=== PATIENT | female | born 1985 | race Caucasian/White ===

== ENCOUNTER 2017-07-02 18:39 | Emergency (ER) | payer OTHER ==
[~2017-07-02] VITALS: Ht 157.5 cm; Wt 83.0 kg
[~2017-07-02 18:39] MED LIST: IBUP-1542 PO; PRENAT PO
[2017-07-02 19:05] VITALS: Ht 157.5 cm; Wt 83.0 kg
[2017-07-02 20:37] LABS: BASOPHIL # 0.1 10^3/ul (0.0-0.1); BASOPHILS % 0.4 % (0.0-2.0); EOSINOPHILS # 0.1 10^3/ul (0.0-0.5); EOSINOPHILS % 1.1 % (0.0-7.0); HEMATOCRIT 38.7 % (37.0-47.0); HEMOGLOBIN 13.4 g/dl (12.0-16.0); LYMPHOCYTES # 2.7 10^3/ul (0.8-2.9); LYMPHOCYTES % 23.4 % (15.0-51.0); MEAN CORPUSCULAR HEMOGLOBIN 31.8 pg (29.0-33.0); MEAN CORPUSCULAR HGB CONC 34.6 g/dl (32.0-37.0); MEAN CORPUSCULAR VOLUME 91.9 fl (82.0-101.0); MEAN PLATELET VOLUME 11.1 fl (7.4-10.4); MONOCYTE # 0.8 10^3/ul (0.3-0.9); MONOCYTES % 6.8 % (0.0-11.0); NEUTROPHIL # 7.9 10^3/ul (1.6-7.5); NEUTROPHILS % 67.8 % (39.0-77.0); PLATELET COUNT 217 10^3/UL (140-415); RED BLOOD COUNT 4.21 10^6/ul (4.20-5.40); RED CELL DISTRIBUTION WIDTH 12.6 % (11.5-14.5); WHITE BLOOD COUNT 11.7 10^3/ul (4.8-10.8)
[2017-07-02] MEDS ORDERED: ONDANSETRON (ODT) 4 MG TAB ODT STA (20:42)
[2017-07-02 20:51] LABS: ADD UMIC YES; UR ASCORBIC ACID NEGATIVE (NEGATIVE); UR BACTERIA FEW /HPF (NONE SEEN); UR BILIRUBIN (Dip) NEGATIVE (NEGATIVE); UR BLOOD (Dip) NEGATIVE (NEGATIVE); UR CLARITY SLIGHTLY CLOUDY (CLEAR); UR COLOR YELLOW (YELLOW); UR GLUCOSE (Dip) NEGATIVE (NEGATIVE); UR KETONES (Dip) NEGATIVE (NEGATIVE); UR LEUKOCYTE ESTERASE (Dip) 2+ Leu/ul (NEGATIVE); UR MUCUS FEW /HPF (NONE SEEN); UR NITRITE (Dip) NEGATIVE (NEGATIVE); UR RBC 2 /HPF (0-5); UR SQUAMOUS EPITHELIAL CELL FEW /HPF (FEW); UR TOTAL PROTEIN (Dip) NEGATIVE (NEGATIVE); UR UROBILINOGEN (Dip) 1+ mg/dL (NEGATIVE)
--- NOTE | 2017-07-02 22:16 | RADRPT ---
PROCEDURE: Obstetrical ultrasound. CLINICAL INDICATION: Pelvic pain. TECHNIQUE: Multiple sonographic images of the pelvis were obtained with transabdominal technique. Images were obtained with oliveira scale and color Doppler. COMPARISON: No prior studies are available for comparison. FINDINGS: There are two intrauterine gestational sac with poles and yolk sacs identified. No subchorion ic collection is identified. The fetus A crown-rump length averages 1.05 cm, compatible with 7 weeks and 1 day. The mean sac di ameter averages 2.09 cm, compatible with 7 weeks and 0 days. heart tones of 182 beats per dereje te are identified. The fetus B crown-rump length averages 1.19 cm, compatible with 7 weeks and 3 days. The mean sac d iameter averages 2.49 cm, compatible with 7 weeks and 4 days. heart tones of 157 beats per min elem are identified. There is no pelvic free fluid. The right ovary measures 3.6 x 2.5 x 3.0 cm and the left ovary measu res 4.4 x 3.4 x 2.7 cm. There is normal flow to both ovaries. There is no suspicious adnexal mass identified. IMPRESSION: Twin living intrauterine gestations. Fetus A measures 7 weeks 1 day and fetus B measures 7 weeks 4 days. .Cody Kilgore MD, Date Time Electronically viewed and signed by .Cody Kilgore MD, MD on 07/02/2017 22:16 .T/
[2017-07-02] MEDS ORDERED: CEPH-443 PO (22:32)
--- NOTE | 2017-07-02 22:59 | ERD ---
ER Documentation Chief Complaint Date/Time DATE: 07/02/17 TIME: 22:58 Chief Complaint 8 weeks , pelvic pain ROS All systems reviewed and are negative except as per history of present illness. Medications Home Meds Active Scripts Cephalexin* (Keflex*) 500 Mg Capsule, 500 MG PO TID for 7 Days, CAP Prov:LEEANNA THAKKAR PA-C 07/02/17 Ibuprofen* (Motrin*) 600 Mg Tab, 600 MG PO Q6, #30 TAB Prov:DARREL JOSE PA-C 04/21/16 Reported Medications Multivit/Min/Fol Ac/Iron/Pren* ( S*) 1 Tab Tab, 1 TAB PO DAILY, TAB 03/09/15 Allergies Allergies: Coded Allergies: No Known Drug Allergy (Verified Allergy, Mild, 03/08/15) PMhx/Soc History of Surgery: Yes (c section) Anesthesia Reaction: No Hx Neurological Disorder: No Hx Respiratory Disorders: Yes (BRONCHITIS) Hx Cardiac Disorders: No Hx Psychiatric Problems: No Hx Miscellaneous Medical Probl: Yes (none) Hx Alcohol Use: No Hx Substance Use: No Hx Tobacco Use: No Smoking Status: Never smoker Physical Exam Vitals Vital Signs Date Time Temp Pulse Resp B/P Pulse Ox O2 Delivery O2 Flow Rate FiO2 07/02/17 19:05 97.8 92 20 124/77 100 Physical Exam Const: [] Head: Atraumatic Eyes: Normal Conjunctiva ENT: Normal External Ears, Nose and Mouth. Neck: Full range of motion..~ No meningismus. Resp: Clear to auscultation bilaterally Cardio: Regular rate and rhythm, no murmurs Abd: Soft, non tender, non distended. Normal bowel sounds Skin: No petechiae or rashes Back: No midline or flank tenderness Ext: No cyanosis, or edema Neur: Awake and alert Psych: Normal Mood and Affect Result Diagram: 07/02/172014 Results 24 hrs Laboratory Tests Test 07/02/17 20:10 07/02/17 20:15 Urine Color YELLOW Urine Clarity SLIGHTLY CLOUDY Urine pH 6.0 Urine Specific Marion 1.030 Urine Ketones NEGATIVEmg/dL Urine Nitrite NEGATIVEmg/dL Urine Bilirubin NEGATIVEmg/dL Urine Urobilinogen 1+mg/dL Urine Leukocyte Esterase 2+Anthony/ul Urine Microscopic RBC 2/HPF Urine Microscopic WBC 6/HPF Urine Squamous Epithelial Cells FEW/HPF Urine Bacteria FEW/HPF Urine Mucus FEW/HPF Urine Hemoglobin NEGATIVEmg/dL Urine Glucose NEGATIVEmg/dL Urine Total Protein NEGATIVEmg/dl White Blood Count 11.710^3/ul Red Blood Count 4.2110^6/ul Hemoglobin 13.4g/dl Hematocrit 38.7% Mean Corpuscular Volume 91.9fl Mean Corpuscular Hemoglobin 31.8pg Mean Corpuscular Hemoglobin Concent 34.6g/dl Red Cell Distribution Width 12.6% Platelet Count 06900^3/UL Mean Platelet Volume 11.1fl Neutrophils % 67.8% Lymphocytes % 23.4% Monocytes % 6.8% Eosinophils % 1.1% Basophils % 0.4% Nucleated Red Blood Cells % 0.0/100WBC Neutrophils # 7.910^3/ul Lymphocytes # 2.710^3/ul Monocytes # 0.810^3/ul Eosinophils # 0.110^3/ul Basophils # 0.110^3/ul Nucleated Red Blood Cells # 0.010^3/ul Beta HCG, Quantitative 805915.0mIU/ml Current Medications Medications (Trade) Dose Ordered Sig/Franky Route PRN Reason Start Time Stop Time Status Last Admin Dose Admin Ondansetron HCl (Zofran Odt) 4 mg ONCE STAT ODT 07/02/17 20:42 07/02/17 20:43 DC 07/02/17 20:49 DIAGNOSTIC IMAGING REPORT Patient: SOURAV HEDRICK : 1985 Age: 31 Sex: F MR #: [id number] DOS: 07/02/171958 Ordering MD: LEEANNA THAKKAR PA-C Location: E Room/Bed: PROCEDURE: Obstetrical ultrasound. CLINICAL INDICATION: Pelvic pain. TECHNIQUE: Multiple sonographic images of the pelvis were obtained with transabdominal technique. Images were obtained with oliveira scale and color Doppler. COMPARISON: No prior studies are available for comparison. FINDINGS: There are two intrauterine gestational sac with poles and yolk sacs identified. No subchorionic collection is identified. The fetus A crown-rump length averages 1.05 cm, compatible with 7 weeks and 1 day. The mean sac diameter averages 2.09 cm, compatible with 7 weeks and 0 days. heart tones of 182 beats per minute are identified. The fetus B crown-rump length averages 1.19 cm, compatible with 7 weeks and 3 days. The mean sac diameter averages 2.49 cm, compatible with 7 weeks and 4 days. heart tones of 157 beats per minute are identified. There is no pelvic free fluid. The right ovary measures 3.6 x 2.5 x 3.0 cm and the left ovary measures 4.4 x 3.4 x 2.7 cm. There is normal flow to both ovaries. There is no suspicious adnexal mass identified. IMPRESSION: Twin living intrauterine gestations. Fetus A measures 7 weeks 1 day and fetus B measures 7 weeks 4 days. .Cody Kilgore MD, Date Time Electronically viewed and signed by .Cody Kilgore MD, MD on 07/02/2017 22:16 .T/ CC: LEEANNA THAKKAR PA-C Procedures/MDM 31-year-old female presents with 2 intrauterine pregnancies in her life, twin gestation, and urinary tract infection. They are both approximately 7 weeks, with positive heart tones. She will be given antibiotics for urinary tract infection as well. Otherwise workup is negative, and she is stable for discharge. She was asked to follow with her OB in early next week. Departure Diagnosis: Primary Impression: Twin gestation in first trimester Additional Impression: UTI (urinary tract infection) Condition: Good Patient Instructions: Understanding Urinary Tract Infections (UTIs), : Your First Trimester Changes, Pelvic Pain, Unknown Cause Additional Instructions: Patient was advised to follow-up with their OB in 3-4 days for a recheck examination. If they were to develop any worsening symptoms sooner, including heavy vaginal bleeding or pelvic pain, they are to return to the ER for further evaluation. LEEANNA THAKKAR PA-C Jul 02, 2017 22:59
[2017-07-02 23:07] VITALS: BP 120/71; PULSE 78; RESP 20; TEMP 97.8
== END 2017-07-02 23:09 | disposition home or self-care (01) ==
LOC: FTE 18:39
DX: O23.41 Unspecified infection of urinary tract in pregnancy, first trimester (principal); R10.2 Pelvic and perineal pain; Z3A.01 Less than 8 weeks gestation of pregnancy
CPT/HCPCS: 36415; 76801; 81001; 84702; 85025; 86900; 86901; Z7502; Z7610

== ENCOUNTER 2017-11-16 11:47 | Inpatient (IN) | payer OTHER ==
[~2017-11-16] VITALS: Ht 160 cm; Wt 86.7 kg
[~2017-11-16 11:47] MED LIST changes: +CEPH-443 PO
[2017-11-16 12:08] VITALS: BP 108/69; PULSE 114; RESP 18; Ht 160 cm; Wt 86.7 kg
[2017-11-16] MEDS ORDERED: LACTATED RINGER'S 1,000 ML IV ONE (12:30)
[2017-11-16] MEDS ORDERED: BETAMET NA PHOS/AC(6 MG/ML) 5ML INJ IM SCH (13:00)
[2017-11-16] MEDS ORDERED: ONDANSETRON 4 MG INJ IV PRN ×2 (13:00→22:00)
[2017-11-16] MEDS ORDERED: MAGNESIUM SULFATE 4 GM/100 ML 100 ML IV ONE (13:00)
[2017-11-16 13:01] LABS: ADD UMIC YES; UR ASCORBIC ACID NEGATIVE (NEGATIVE); UR BACTERIA FEW /HPF (NONE SEEN); UR BILIRUBIN (Dip) NEGATIVE (NEGATIVE); UR BLOOD (Dip) NEGATIVE (NEGATIVE); UR CLARITY SLIGHTLY CLOUDY (CLEAR); UR COLOR YELLOW (YELLOW); UR GLUCOSE (Dip) NEGATIVE (NEGATIVE); UR KETONES (Dip) 1+ mg/dL (NEGATIVE); UR LEUKOCYTE ESTERASE (Dip) TRACE Leu/ul (NEGATIVE); UR MUCUS FEW /HPF (NONE SEEN); UR NITRITE (Dip) NEGATIVE (NEGATIVE); UR RBC 1 /HPF (0-5); UR SPECIFIC GRAVITY (Dip) 1.012 (1.003-1.030); UR SQUAMOUS EPITHELIAL CELL MODERATE /HPF (FEW); UR TOTAL PROTEIN (Dip) NEGATIVE (NEGATIVE); UR UROBILINOGEN (Dip) 2+ mg/dL (NEGATIVE)
[2017-11-16] MEDS: LACTATED RINGER'S 1,000 ML IV SCH ×2 (13:46→17:11)
--- NOTE | 2017-11-16 13:47 | HP ---
Date/Time of Note Date/Time of Note DATE: 11/16/17 TIME: 13:46 OB - History Hx of Present Free Text/Dictation 27+wks Twin s/p cercalage with CTxs : 2 Para: 1 Care: Good Care Obstetrical Complications: None Medical Complications: None Past Family/Social History * Past Medical, Surgical, Family and Obstetric Histories reviewed from chart. OB Admission Exam Vital Signs Vital Signs Vital Signs Date Time Temp Pulse Resp B/P Pulse Ox O2 Delivery O2 Flow Rate FiO2 11/16/17 12:08 98.8 114 18 108/69 96 Room Air Physical Exam Abdomen: WNL Extremities: Normal Cervical Dilatation: None Effacement: 0% Membranes: Intact Heart Rate: 140's Accelerations: Accelerations Present Decelerations: No Decelerations Varibility: Moderate Contractions on Admission: < 5 Minutes Apart OB Assessment/Plan Reason for admission: observation Plan: Expectant Management Other plan: Mg Steroids Ultrasound Prenatalogy consult Neonatology consult CHRISTOPHER TREJO M.D. Nov 16, 2017 13:47
[2017-11-16] MEDS: MAGNESIUM SULFATE 20 GM/500 ML 500 ML IV SCH ×2 (13:52→22:49)
--- NOTE | 2017-11-16 14:01 | RADRPT ---
PROCEDURE: US OB. CLINICAL INDICATION: labor. Planes TECHNIQUE: Multiple sonographic images of the pelvis were obtained. The images were reviewed on a PACS workstation. COMPARISON: 07/05/2017 FINDINGS: There is a twin live intrauterine . Baby A: cardiac activity is identified at a rate of 154 beats per minute. presentation is cephalic. Placenta is posterior grade 1 Biophysical profile score is as follows: Breathing 2 Movements 2 Tone 2 Fluid volume 2 Single largest pocket of amniotic fluid is 5.5 cm Total biophysical profile score = 8/8 Baby B: cardiac activity is identified at a rate of 135 beats per minute. position is transverse to the maternal left. Placenta is anterior grade 1. Biophysical profile score is as follows: Breathing 2 Movements 2 Tone 2 Fluid volume 2 Single largest pocket of amniotic fluid is 4.3 cm Total biophysical profile score = 8/8 IMPRESSION: 1. Twin live intrauterine 2. Baby A: Biophysical profile score = 8/8 3. Baby B: Biophysical profile score = 8/8 RPTAT: .Ranjeet Mckeon MD, Date Time Electronically viewed and signed by .Ranjeet Mckeon MD, on 11/16/2017 14:01 .W/
--- NOTE | 2017-11-16 14:29 | RADRPT ---
PROCEDURE: US OB. CLINICAL INDICATION: labor. Twin . TECHNIQUE: Multiple transabdominal sonographic images of the pelvis were obtained. COMPARISON: 09/07/2017. FINDINGS: A twin intrauterine is identified. Marked funneling of the internal cervical os extending to the level of the external cervical os is observed. The dilated endocervical canal measures approx imately 3.7 cm in greatest dimension, previously 1.7 cm in greatest dimension. Anterior and posterio r placentas are observed. Twin A: Measurements were made in order to determine age. The results are as follows: BPD = * HC = * AC = 22.62 cm, 27-week 0 days FL = 4.79 cm, 26 weeks 0 days * unable to obtain measurements due to low lie. SUE: 02/18/2018 by ultrasound. SUE: 02/14/2018 by LMP. EFW: 990.65 g, 2 pounds 3 ounces, 26.5% heart motion: 148 beats per minute Twin B: Measurements were made in order to determine age. The results are as follows: BPD = 6.59 cm, 26 weeks 4 days HC = 24.53 cm, 26 weeks 4 days AC = 22.97 cm, 27 weeks 2 days FL = 4.84 cm, 26 weeks 2 days SUE: 02/17/2018 by ultrasound. SUE: 02/14/2018 by LMP. EFW: 989.53 g, 2 pounds 3 ounces, 26.2%. heart motion: 142 beats per minute IMPRESSION: Twin intrauterine measuring approximately 26 weeks 4 days using current ultrasound measure ments with an estimated date of delivery of 02/18/2018. Marked funneling of the internal cervical os extending to the level of the external cervical os. The dilated endocervical canal measures 3.7 cm in greatest dimension, previously 1.7 cm. RPTAT: HLST .Iris Williamson MD, Date Time Electronically viewed and signed by .Iris Williamson MD, MD on 11/16/2017 14:29 .T/
[2017-11-16 15:42] LABS: BASOPHILS % 0.3 % (0.0-2.0); EOSINOPHILS # 0.1 10^3/ul (0.0-0.5); EOSINOPHILS % 0.5 % (0.0-7.0); HEMATOCRIT 29.5 % (37.0-47.0); LYMPHOCYTES # 1.3 10^3/ul (0.8-2.9); LYMPHOCYTES % 10.8 % (15.0-51.0); MEAN CORPUSCULAR HEMOGLOBIN 30.7 pg (29.0-33.0); MEAN CORPUSCULAR HGB CONC 33.9 g/dl (32.0-37.0); MEAN CORPUSCULAR VOLUME 90.5 fl (82.0-101.0); MEAN PLATELET VOLUME 11.1 fl (7.4-10.4); MONOCYTE # 1.3 10^3/ul (0.3-0.9); MONOCYTES % 11.2 % (0.0-11.0); NEUTROPHIL # 8.8 10^3/ul (1.6-7.5); NEUTROPHILS % 75.7 % (39.0-77.0); PLATELET COUNT 227 10^3/UL (140-415); RED BLOOD COUNT 3.26 10^6/ul (4.20-5.40); RED CELL DISTRIBUTION WIDTH 13.1 % (11.5-14.5); WHITE BLOOD COUNT 11.6 10^3/ul (4.8-10.8)
[2017-11-16 15:45] LABS: INR 0.96; PROTIME 12.9 Sec (11.9-14.9)
[2017-11-16 15:46] LABS: PARTIAL THROMBOPLASTIN TIME 30.3 Sec (25.0-35.0)
[2017-11-16 15:48] LABS: ALBUMIN 3.6 g/dl (3.3-4.9); ALBUMIN/GLOBULIN RATIO 0.87; BILIRUBIN,INDIRECT 0.4 mg/dl (0-1.1); BILIRUBIN,TOTAL 0.4 mg/dl (0.2-1.3); CALCIUM 9.4 mg/dl (8.4-10.2); CREATININE 0.5 mg/dl (0.44-1.00); POTASSIUM 3.7 mmol/L (3.5-5.1); TOTAL PROTEIN 7.7 g/dl (6.1-8.1)
[2017-11-16 16:16] LABS: BARBITURATES Negative (NEGATIVE); BENZODIAZEPINES Negative (NEGATIVE); CANNABINOIDS Negative (NEGATIVE); COCAINE Negative (NEGATIVE); OPIATES Negative (NEGATIVE)
--- NOTE | 2017-11-16 19:22 | CONS ---
DATE OF ADMISSION: 11/16/2017 DATE OF CONSULTATION: TYPE OF CONSULTATION: Neonatology . REQUESTING PHYSICIAN: Dr. Hardy HISTORY OF PRESENT ILLNESS: This mother is a 32-year-old 6, para 5, SAB 2, two term, 1 rebecca ature delivery. Mother has dichorionic diamniotic twins followed through [facility]. Mother madan mora today with labor. She is on tocolysis and is receiving steroids. I spoke to the parents in Thai regarding the risks associated with premature delivery including b ut not limited to the followin. Respiratory. I discussed the risk of respiratory distress syndrome and the use of surfactants a nd ventilatory support and oxygen supplementation. I also spoke about the risk of chronic lung dise ase should the babies require significant ventilatory support. We also discussed the risks of apnea of prematurity, the use of caffeine, nasal cannula oxygen supplementation. 2. Cardiac. I spoke about the risks of hypotension, including the use of medications to support bl ood pressure. Discussed the risk of patent ductus arteriosus and possible treatment with Indomethac in or surgical closure as indicated. 3. I spoke about the risks of infection, the use of antibiotics. 4. I spoke about the risks of anemia, the use of transfusions, physiologic jaundice and the use of phototherapy. 5. I spoke about the risks of intraventricular hemorrhage including its grading system. I also spo ke about the long-term risks of neurodevelopmental problems including but not limited to cerebral pa lsy, mental retardation, and school learning difficulties. 6. I spoke about the length of stay being approximately until due date, which at this time would be to 13 weeks, plus or minus 2 weeks. There is a minimal risk of mortality at this particular gestat ional age, especially if we can get at least a couple more days after the steroids are delivered. 7. I also discussed the risks of necrotizing enterocolitis and feeding difficulties. Thank you for this consult. We will be available for attendance at delivery as necessary. Dictated By: ATIF AVILEZ/SEBASTIAN Conf#: [id number] DID#: [id number] CC: CHRISTOPHER HARDY MD;*EndCC*
[2017-11-16] MEDS ORDERED: LACTATED RINGER'S 1,000 ML IV SCH (19:39)
--- NOTE | 2017-11-16 19:56 | QN ---
Documentation Comment Patient continues to have strong contractions despite being on IV magnesium sulfate. Cervix 8 cm dilated. Case discussed with Dr Peguero ([facility]) who recommends to deliver the patient at this time by repeat . Risks, benefits and alternatives were explained to the patient who stated she understood and gave informed consent for repeat . JAVY DALLAS MD Nov 16, 2017 19:56
[2017-11-16] MEDS ORDERED: METHYLERGONOVINE 0.2 MG INJ IM PRN (20:00)
[2017-11-16] MEDS ORDERED: CEFAZOLIN 2 GM/50 ML (PMX) 50 ML IV SCH (20:00)
[2017-11-16] MEDS ORDERED: OXYTOCIN 30 UNITS/LR 500 ML IV PRN (20:00)
[2017-11-16] MEDS ORDERED: CARBOPROST 250 MCG INJ IM PRN (20:00)
[2017-11-16] MEDS ORDERED: MISOPROSTOL 200 MCG TAB PR PRN (20:00)
[2017-11-16] MEDS ORDERED: morphine SULFATE/PF (10 MG/10 ML) INJ ONE (20:04)
[2017-11-16] MEDS ORDERED: OXYTOCIN 30 UNITS/LR 500 ML IV ONE (20:04)
[2017-11-16] MEDS ORDERED: ONDANSETRON 4 MG INJ ONE (20:04)
[2017-11-16] MEDS ORDERED: EPHEDrine SULFATE 50 MG/5 ML SYG ONE (20:04)
[2017-11-16] MEDS ORDERED: METOCLOPRAMIDE 10 MG INJ ONE (20:05)
[2017-11-16] MEDS ORDERED: OXYTOCIN 10 UNIT INJ ONE ×2 (20:05→20:28)
--- NOTE | 2017-11-16 21:46 | OPPN ---
Date/Time of Note Date/Time of Note DATE: 11/16/17 TIME: 21:40 Operative Report Planned Procedure Procedure date Nov 16, 2017 Procedure(s) Repeat c/s, BTL, removal of cerclage Performed by Javy Dallas MD Warp Starter none Pre-procedure diagnosis 27 weeks, twins, labor, previous c/s, cerclage insitu Anesthesia Type: spinal Post-Procedure Post-procedure diagnosis Same Findings Live Baby [], Apgars [] and [], weight [], position [], [] presentation []cord. Estimated Blood Loss: 500 - 600 mls (500 ml) Specimen(s) placenta, right and left Fallopian tubes Grafts/Implant(s) none Complication(s) none JAVY DALLAS MD Nov 16, 2017 21:46
[2017-11-16] MEDS ORDERED: DIPHENHYDRAMINE 50 MG INJ IV PRN (22:00)
[2017-11-16] MEDS ORDERED: morphine 4 MG/ML VIAL IV PRN (22:00)
[2017-11-16] MEDS ORDERED: NALOXONE (0.4 MG/ML) INJ IV PRN (22:00)
[2017-11-16] MEDS ORDERED: morphine SULFATE/PF (10 MG/10 ML) INJ SPINAL ONE (22:00)
[2017-11-16] MEDS ORDERED: morphine 2 MG INJ IV PRN (22:00)
[2017-11-16] MEDS ORDERED: EPHEDrine SULFATE 50 MG/5 ML SYG IV PRN (22:00)
[2017-11-16] MEDS: KETOROLAC 30 MG INJ IV PRN (22:18)
[2017-11-16] MEDS: OXYTOCIN 30 UNITS/LR 500 ML IV SCH ×2 (22:20→23:40)
--- NOTE | 2017-11-16 23:47 | OPR ---
DATE OF OPERATION: 11/16/2017 PREOPERATIVE DIAGNOSES: 1. at 27 weeks with twins. 2. Previous section in active labor and cerclage in situ. 3. Voluntary sterilization. POSTOPERATIVE DIAGNOSES: 1. at 27 weeks with twins. 2. Previous section in active labor and cerclage in situ. OPERATION PERFORMED: Repeat low transverse section, bilateral tubal ligation and removal o f cerclage. SURGEON: Dr. Javy Bourgeois MOBILE ARCHITECT: Dr. Renea Wynn ANESTHESIA: Spinal. ANESTHESIOLOGIST: Dr. Casey. DESCRIPTION OF PROCEDURE: The patient was taken to the operating room, placed on the operating tabl e. After successful spinal anesthesia was given, the patient was placed in supine position. The ar ea was prepared and draped in the usual sterile fashion. Spinal anesthesia was tested and was satis factory. Using a scalpel, Pfannenstiel incision was made about 2 fingerbreadths above the symphysis pubis. The incision was carried to fascia. The fascia was incised and extended bilaterally with M nuria scissors. Two Oswaldo's were used to separate the fascia from the muscle. The muscle was dissec morgan down to peritoneum. The peritoneum was secured with 2 Kellys and incised with Metzenbaum scisso rs. Using a scalpel, a small transverse incision was made on the lower segment of the uterus. Upon entering the uterine cavity, bandage scissors were inserted to extend the incision bilaterally, cur oscar up. Twin A baby girl was delivered from cephalic presentation. After suctioning clear of amnio tic fluid, the baby was handed off to the material control analyst in attendance. Apgars were 8 and 9. Twin B baby girl was delivered from cephalic position after internal version from transverse lie. After s uctioning clear of amniotic fluid, the baby was handed off to material control analyst in attendance. Apgars w ere 7 and 9. The placenta was delivered without difficulty. The uterus was closed with #1 Monocryl continuous locked. After assuring hemostasis, both ovaries and tubes were inspected, all looked no rmal. The right fallopian tube was grasped with Zane clamp. Using 0 plain suture ligature, a 5 cm segment of the right fallopian tube was doubly ligated. Using Metzenbaum scissors, a portion of the right fallopian tube, it was then ligated, the area was excised and sent to pathology. Same pro cedure was repeated on the left fallopian tube. After assuring hemostasis, the peritoneum was close d with 2-0 Vicryl continuous. The fascia was closed with #1 continuous in 2 segments. Subcutaneous tissue was reapproximated with 2-0 plain. The skin was closed with elizabeth. After completion of c esarean section, the patient was placed in dorsal lithotomy position. Cerclage was removed. The pa tient tolerated the procedure well. The patient was transferred to recovery in stable condition. ESTIMATED BLOOD LOSS: 500 mL. COUNTS: All counts were correct. Dictated By: JAVY BOURGEOIS MD GD/NTS Conf#: [id number] DID#: [id number] CC: CHRISTOPHER TREJO MD; RENEA WYNN MD;*EndCC*
[2017-11-17] MEDS ORDERED: OXYTOCIN 30 UNITS/LR 500 ML IV SCH (00:37)
[2017-11-17 00:56] VITALS: BP 103/66; PULSE 113; RESP 20
[2017-11-17] MEDS ORDERED: MISOPROSTOL 200 MCG TAB PR PRN (01:00)
[2017-11-17] MEDS ORDERED: METHYLERGONOVINE 0.2 MG INJ IM PRN (01:00)
[2017-11-17] MEDS ORDERED: LANOLIN 7 GM TUBE TOP PRN (01:00)
[2017-11-17] MEDS ORDERED: OXYTOCIN 30 UNITS/LR 500 ML IV PRN (01:00)
[2017-11-17] MEDS ORDERED: CARBOPROST 250 MCG INJ IM PRN (01:00)
[2017-11-17 03:30] VITALS: BP 108/67; PULSE 95; RESP 18
[2017-11-17 08:15] VITALS: BP 99/62; PULSE 92; RESP 18
[2017-11-17] MEDS: LACTATED RINGER'S 1,000 ML IV SCH ×3 (08:37→16:37)
[2017-11-17] MEDS: SENNA/DOCUSATE NA (8.6MG/50MG) TAB PO SCH ×2 (09:00→20:57)
[2017-11-17 09:47] LABS: BASOPHILS % 0.3 % (0.0-2.0); EOSINOPHILS % 0.1 % (0.0-7.0); HEMATOCRIT 27.4 % (37.0-47.0); LYMPHOCYTES # 1.4 10^3/ul (0.8-2.9); LYMPHOCYTES % 9.7 % (15.0-51.0); MEAN CORPUSCULAR HEMOGLOBIN 30.1 pg (29.0-33.0); MEAN CORPUSCULAR HGB CONC 32.8 g/dl (32.0-37.0); MEAN CORPUSCULAR VOLUME 91.6 fl (82.0-101.0); MEAN PLATELET VOLUME 10.6 fl (7.4-10.4); MONOCYTE # 1.5 10^3/ul (0.3-0.9); MONOCYTES % 9.9 % (0.0-11.0); NEUTROPHIL # 11.6 10^3/ul (1.6-7.5); NEUTROPHILS % 78.8 % (39.0-77.0); PLATELET COUNT 222 10^3/UL (140-415); RED BLOOD COUNT 2.99 10^6/ul (4.20-5.40); WHITE BLOOD COUNT 14.7 10^3/ul (4.8-10.8)
[2017-11-17] MEDS: KETOROLAC 30 MG INJ IV PRN ×2 (11:19→18:41)
[2017-11-17 12:00] VITALS: BP 98/61; PULSE 85; RESP 18
--- NOTE | 2017-11-17 12:19 | PN ---
Date/Time of Note Date/Time of Note DATE: 11/17/17 TIME: 12:16 OB Subjective Subjective Subjective Has not gotten out of the bed yet. Pain well controlled. Denies any nausea vomiting. Decreased vaginal bleeding. Unger still in place. Has not passed gas yet. Has been pumping the breast. Both babies are in NICU. Denies any depressive symptoms. OB Objective Objective Objective General appearance: Alert and oriented 4. Patient appears to be in mild distress. Abdomen: Soft, appropriate tenderness in the incision Dressing clean dry Extremities no calf tenderness, negative Homans sign. SCDs are in place Unger draining clear yellow urine No breast tenderness, no engorgement, no evidence of mastitis or fissure Hematology - 72 Hrs Test 11/16/17 12:30 11/17/17 09:25 White Blood Count 11.610^3/ul (4.8-10.8) H 14.710^3/ul (4.8-10.8) #H Red Blood Count 3.2610^6/ul (4.20-5.40) #L 2.9910^6/ul (4.20-5.40) L Hemoglobin 10.0g/dl (12.0-16.0) #L 9.0g/dl (12.0-16.0) L Hematocrit 29.5% (37.0-47.0) #L 27.4% (37.0-47.0) L Mean Corpuscular Volume 90.5fl (82.0-101.0) 91.6fl (82.0-101.0) Mean Corpuscular Hemoglobin 30.7pg (29.0-33.0) 30.1pg (29.0-33.0) Mean Corpuscular Hemoglobin Concent 33.9g/dl (32.0-37.0) 32.8g/dl (32.0-37.0) Red Cell Distribution Width 13.1% (11.5-14.5) 13.0% (11.5-14.5) Platelet Count 30824^3/UL (140-415) 15144^3/UL (140-415) Mean Platelet Volume 11.1fl (7.4-10.4) H 10.6fl (7.4-10.4) H Neutrophils % 75.7% (39.0-77.0) 78.8% (39.0-77.0) H Lymphocytes % 10.8% (15.0-51.0) L 9.7% (15.0-51.0) L Monocytes % 11.2% (0.0-11.0) H 9.9% (0.0-11.0) Eosinophils % 0.5% (0.0-7.0) 0.1% (0.0-7.0) Basophils % 0.3% (0.0-2.0) 0.3% (0.0-2.0) Nucleated Red Blood Cells % 0.0/100WBC (0.0-0.0) 0.0/100WBC (0.0-0.0) Neutrophils # 8.810^3/ul (1.6-7.5) H 11.610^3/ul (1.6-7.5) H Lymphocytes # 1.310^3/ul (0.8-2.9) 1.410^3/ul (0.8-2.9) Monocytes # 1.310^3/ul (0.3-0.9) H 1.510^3/ul (0.3-0.9) H Eosinophils # 0.110^3/ul (0.0-0.5) 0.010^3/ul (0.0-0.5) Basophils # 0.010^3/ul (0.0-0.1) 0.010^3/ul (0.0-0.1) Nucleated Red Blood Cells # 0.010^3/ul (0.0-0.0) 0.010^3/ul (0.0-0.0) Chemistry Test 11/16/17 12:30 11/16/17 18:00 11/17/17 09:25 Sodium Level 138mmol/L (135-144) Potassium Level 3.7mmol/L (3.5-5.1) Chloride Level 104mmol/L (97-110) Carbon Dioxide Level 21mmol/L (21-31) Anion Gap 17 (8-16) H Blood Urea Nitrogen 5mg/dl (7-20) L Creatinine 0.50mg/dl (0.44-1.00) Glucose Level 73mg/dl (70-220) Calcium Level 9.4mg/dl (8.4-10.2) Total Bilirubin 0.4mg/dl (0.2-1.3) Direct Bilirubin 0.00mg/dl (0.00-0.20) Indirect Bilirubin 0.4mg/dl (0-1.1) Aspartate Amino Transf (AST/SGOT) 34IU/L (15-46) Alanine Aminotransferase (ALT/SGPT) 39IU/L (13-69) Alkaline Phosphatase 178IU/L (42-121) H Total Protein 7.7g/dl (6.1-8.1) Albumin 3.6g/dl (3.3-4.9) Globulin 4.10g/dl (1.3-3.2) H Albumin/Globulin Ratio 0.87 Magnesium Level 4.1mg/dl (1.7-2.5) H 2.2mg/dl (1.7-2.5) # OB Assessment/Plan Other Assessment: Status post repeat section and BTL. He is a 27 weeks with twin gestation and cerclage in place. Failed tocolysis Doing well Babies are in NICU. Due to prematurity Anemia related to physiologic anemia of as well as . Asymptomatic Routine postop care Ambulation after 24 hours and DC Unger Iron BID after tolerated regular diet and has passed flatus EMY MACK MD Nov 17, 2017 12:19
[2017-11-17 16:00] VITALS: BP 113/73; PULSE 90; RESP 18
[2017-11-17 19:30] VITALS: BP 111/69; PULSE 85; RESP 18
[2017-11-17] MEDS ORDERED: OXYCODONE/ACETAMINOPHEN (5/325) TAB PO PRN (22:00)
[2017-11-17] MEDS: IBUPROFEN 800 MG TAB PO SCH (23:22)
[2017-11-18] MEDS: LACTATED RINGER'S 1,000 ML IV SCH ×3 (00:37→15:28)
[2017-11-18 03:45] VITALS: BP 104/64; PULSE 77; RESP 18
[2017-11-18] MEDS: OXYCODONE/ACETAMINOPHEN (5/325) TAB PO PRN ×2 (03:48→15:56)
[2017-11-18] MEDS: IBUPROFEN 800 MG TAB PO SCH ×3 (05:44→22:02)
[2017-11-18 08:00] VITALS: BP 113/72; PULSE 85; RESP 17
[2017-11-18] MEDS: SENNA/DOCUSATE NA (8.6MG/50MG) TAB PO SCH ×2 (09:00→20:11)
--- NOTE | 2017-11-18 09:13 | PN ---
Date/Time of Note Date/Time of Note DATE: 11/18/17 TIME: 09:09 OB Subjective Subjective Subjective Post C section day 2 Doing Well Afebrile Ambulatory Occasional coughing Breasts are soft , Nipples are intact Abdomen is soft Fundus is firm Moderate amount of lochia Incision is clean ,No evidence of infection No calf tenderness No ankle edema Laboratory Tests Test 11/17/17 09:25 White Blood Count 14.710^3/ul Red Blood Count 2.9910^6/ul Hemoglobin 9.0g/dl Hematocrit 27.4% Mean Corpuscular Volume 91.6fl Mean Corpuscular Hemoglobin 30.1pg Mean Corpuscular Hemoglobin Concent 32.8g/dl Red Cell Distribution Width 13.0% Platelet Count 45122^3/UL Mean Platelet Volume 10.6fl Neutrophils % 78.8% Lymphocytes % 9.7% Monocytes % 9.9% Eosinophils % 0.1% Basophils % 0.3% Nucleated Red Blood Cells % 0.0/100WBC Neutrophils # 11.610^3/ul Lymphocytes # 1.410^3/ul Monocytes # 1.510^3/ul Eosinophils # 0.010^3/ul Basophils # 0.010^3/ul Nucleated Red Blood Cells # 0.010^3/ul Magnesium Level 2.2mg/dl Current Medications Medications (Trade) Dose Ordered Sig/Franky Route PRN Reason Start Time Stop Time Status Last Admin Dose Admin Lactated Ringer's 1,000 ml @ 1,000 mls/hr Q1H ONCE IV 11/16/17 12:30 11/16/17 13:29 DC 11/16/17 13:27 Lactated Ringer's 1,000 ml @ 125 mls/hr Q8H IV 11/16/17 12:49 11/16/17 19:54 DC 11/16/17 17:11 Magnesium Sulfate 100 ml @ 200 mls/hr ONCE ONCE IV 11/16/17 13:00 11/16/17 13:29 DC 11/16/17 13:33 Magnesium Sulfate (Magnesium Sulfate 20 Gm/500 ml) 500 ml @ 50 mls/hr Q10H IV 11/16/17 12:49 11/17/17 00:42 DC 11/16/17 13:52 Betamethasone Acet/Betameth SodPhos (Celestone Soluspan) 12 mg Q24H IM 11/16/17 13:00 11/17/17 00:42 DC 11/16/17 13:28 Ondansetron HCl 4 mg 4 mg Q6H PRN IV NAUSEA AND/OR VOMITING 11/16/17 13:00 11/17/17 00:42 DC Lactated Ringer's 1,000 ml @ 125 mls/hr Q8H IV 11/16/17 19:39 11/17/17 00:42 DC Cefazolin Sodium/ Dextrose 50 ml @ 100 mls/hr ONCE IV 11/16/17 20:00 11/17/17 00:42 DC Oxytocin/Lactated Ringer's 500 ml @ 125 mls/hr POST IV 11/16/17 20:00 11/17/17 00:42 DC 11/16/17 23:40 Oxytocin/Lactated Ringer's 500 ml @ 0 mls/hr ONCE PRN IV For Hemorrhage Management 11/16/17 20:00 11/17/17 00:42 DC Methylergonovine Maleate (Methergine) 0.2 mg ONCE PRN IM VAGINAL BLEEDING 11/16/17 20:00 11/17/17 00:42 DC Carboprost Tromethamine (Hemabate) 250 mcg ONCE PRN IM VAGINAL BLEEDING 11/16/17 20:00 11/17/17 00:42 DC Misoprostol (Cytotec) 1,000 mcg ONCE PRN WI VAGINAL BLEEDING 11/16/17 20:00 11/17/17 00:42 DC Ephedrine Sulfate 50 mg 50 mg STK-MED ONCE .ROUTE 11/16/17 20:04 11/16/17 20:05 DC Oxytocin/Lactated Ringer's 500 ml @ ud STK-MED ONCE IV 11/16/17 20:04 11/16/17 20:05 DC Morphine Sulfate (Duramorph) 10 mg STK-MED ONCE .ROUTE 11/16/17 20:04 11/16/17 20:05 DC Ondansetron HCl (Zofran Inj) 4 mg STK-MED ONCE .ROUTE 11/16/17 20:04 11/16/17 20:05 DC Metoclopramide HCl (Reglan) 10 mg STK-MED ONCE .ROUTE 11/16/17 20:05 11/16/17 20:06 DC Oxytocin (Oxytocin) 10 units STK-MED ONCE .ROUTE 11/16/17 20:05 11/16/17 20:06 DC Oxytocin (Oxytocin) 10 units STK-MED ONCE .ROUTE 11/16/17 20:28 11/16/17 20:29 DC Naloxone HCl (Narcan) 0.1 mg Q2M PRN IV FOR RESP RATE 8 OR LESS 11/16/17 22:00 11/17/17 21:59 DC Ketorolac Tromethamine (Toradol) 30 mg Q6H PRN IV PAIN 11/16/17 22:00 11/17/17 21:59 DC 11/17/17 18:41 Morphine Sulfate (morphine) 2 mg Q3H PRN IV PAIN LEVEL 1-5 11/16/17 22:00 11/17/17 21:59 DC Morphine Sulfate (morphine) 4 mg Q3H PRN IV PAIN LEVEL 6-10 11/16/17 22:00 11/17/17 21:59 DC Diphenhydramine HCl (Benadryl) 25 mg Q6H PRN IV ITCHING 11/16/17 22:00 11/17/17 21:59 DC 11/16/17 23:39 Ondansetron HCl (Zofran Inj) 4 mg Q6H PRN IV NAUSEA AND/OR VOMITING 11/16/17 22:00 11/17/17 21:59 DC Morphine Sulfate (Duramorph) 0.3 mg GIVEN ANESTH ONCE SPINAL 11/16/17 22:00 11/16/17 22:01 DC Ephedrine Sulfate 5 mg 5 mg [id number] PRN IV BLOOD PRESSURE SUPPORT 11/16/17 22:00 11/17/17 00:42 DC Lactated Ringer's 1,000 ml @ 125 mls/hr Q8H IV 11/17/17 00:37 11/17/17 14:03 Oxytocin/Lactated Ringer's 500 ml @ 50 mls/hr Q10H IV 11/17/17 00:37 11/17/17 10:36 DC 11/17/17 03:34 Oxycodone/ Acetaminophen (Percocet (5/ 325)) 1 tab Q4H PRN PO PAIN LEVEL 4-6 11/17/17 22:00 Oxycodone/ Acetaminophen (Percocet (5/ 325)) 2 tab Q4H PRN PO PAIN LEVEL 7-10 11/17/17 22:00 11/18/17 03:48 Ibuprofen (Motrin) 800 mg Q8 PO 11/17/17 22:00 11/18/17 05:44 Simethicone (Mylicon) 160 mg Q8H PRN PO DISTENSION/GAS/BLOATING 11/17/17 01:00 11/18/17 03:49 Senna/Docusate Sodium (Senokot-S) 1 tab BID PO 11/17/17 09:00 11/17/17 20:57 Lanolin ([id number]) 1 applic BEDSIDE MEDICATION PRN TOP BEDSIDE FOR RC TO NIPPLES 11/17/17 01:00 11/17/17 11:20 Diphtheria/ Tetanus/Acell Pertussis 0.5 ml 0.5 ml ONCE ONCE IM* 11/19/17 09:00 11/19/17 09:01 Oxytocin/Lactated Ringer's 500 ml @ 0 mls/hr ONCE PRN IV For Hemorrhage Management 11/17/17 01:00 Methylergonovine Maleate (Methergine) 0.2 mg ONCE PRN IM VAGINAL BLEEDING 11/17/17 01:00 Carboprost Tromethamine (Hemabate) 250 mcg ONCE PRN IM VAGINAL BLEEDING 11/17/17 01:00 Misoprostol (Cytotec) 1,000 mcg ONCE PRN [place] VAGINAL BLEEDING 11/17/17 01:00 New born is in NICU. JUAN CHRISTINE MD Nov 18, 2017 09:13
[2017-11-18 15:50] VITALS: BP 114/73; RESP 16
[2017-11-18] MEDS: GUAIFENESIN 20 MG/ML 5ML CUP PO PRN ×2 (15:55→20:10)
[2017-11-18 21:03] VITALS: BP 108/84; PULSE 81; RESP 18
[2017-11-19] MEDS: LACTATED RINGER'S 1,000 ML IV SCH ×2 (00:37→08:30)
[2017-11-19 04:49] VITALS: BP 105/75; PULSE 74; RESP 18
[2017-11-19] MEDS: GUAIFENESIN 20 MG/ML 5ML CUP PO PRN ×2 (05:50→10:33)
[2017-11-19] MEDS: IBUPROFEN 800 MG TAB PO SCH (05:50)
[2017-11-19 07:56] VITALS: BP 116/73; RESP 16
[2017-11-19 08:30] VITALS: BP 110/71; PULSE 65; RESP 20
[2017-11-19] MEDS ORDERED: DIPHTH/TET/ACEL PERTUSS (ADULT) 0.5 ML VIAL IM* ONE (09:00)
[2017-11-19] MEDS: SENNA/DOCUSATE NA (8.6MG/50MG) TAB PO SCH (09:16)
--- NOTE | 2017-11-19 11:10 | QN ---
Documentation Comment POD#3 is stable afebrile tolerates diet No VB +BM +voids VS stable Gen NAD Abd soft NT ND Incision intact Genitalia No blood at perinium --->discharge Home after removing elizabeth CHRISTOPHER TREJO M.D. Nov 19, 2017 11:10
--- NOTE | 2017-11-19 11:11 | DS ---
Date/Time of Note Date/Time of Note DATE: 11/19/17 TIME: 11:10 Discharge Summary Admission/Discharge Info Admit Date/Time Nov 16, 2017 at 12:48 Discharge Date/Time Discharge Diagnosis Twin Patient Condition: Good Procedures c/section Hospital Course uneventful Home Meds Discontinued Reported Medications Multivit/Min/Fol Ac/Iron/Pren* ( S*) 1 Tab Tab, 1 TAB PO DAILY, TAB 03/09/15 Discontinued Scripts Cephalexin* (Keflex*) 500 Mg Capsule, 500 MG PO TID for 7 Days, CAP Prov:LEEANNA THAKKAR PA-C 07/02/17 Ibuprofen* (Motrin*) 600 Mg Tab, 600 MG PO Q6, #30 TAB Prov:DARREL JOSE PA-C 04/21/16 Primary Care Provider [facility] CHRISTOPHER TREJO M.D. Nov 19, 2017 11:11
== END 2017-11-19 12:22 | disposition home or self-care (01) | DRG 766 ==
LOC: L-D 11:47 → OBT 11:47 → L-D 12:48 → PP1 11-17 00:03
PROVIDERS: ADMIT Obstetrics & Gynecology; ATTEND Obstetrics & Gynecology
PROC: 0UB70ZZ Excision of Bilateral Fallopian Tubes, Open Approach (ICD-10-PCS; 2017-11-16)
PROC: 10D00Z1 Extraction of Products of Conception, Low, Open Approach (ICD-10-PCS; principal; 2017-11-16 20:00)
DX: O30.042 Twin pregnancy, dichorionic/diamniotic, second trimester (principal); Z37.2 Twins, both liveborn; O34.211 Maternal care for low transverse scar from previous cesarean delivery; Z3A.27 27 weeks gestation of pregnancy; Z30.2 Encounter for sterilization; O99.02 Anemia complicating childbirth; O90.81 Anemia of the puerperium
CPT/HCPCS: 36415; 76815; 76817; 76818; 80053; 80307; 81001; 82731; 83735; 85025; 85610; 85730; 86592; 86850; 86900; 86901; 87086; 87340; 88307; 90715; 94760; 99464; G0463; J0690; J0702; J1200; J1885; J2274; J2405; J2590; J2765; J3475; J7120

== ENCOUNTER 2018-10-14 17:59 | Emergency (ER) | END 2018-10-14 19:54 | disposition home or self-care (01) ==